=== PATIENT | female | born 1995 | race Caucasian/White ===

== ENCOUNTER 2019-09-11 01:08 | Emergency (ER) | payer OTHER ==
--- NOTE | 2019-09-11 01:35 | ED Physician Documentation ---
PD HPI CHEST PAIN - Stated complaint Stated Complaint: CHEST PAIN - Chief complaint Chief Complaint: Cardiac - History obtained from History obtained from: Patient - History of Present Illness Timing - onset: Last night (She states she was at a concert last night in [place]. She states it was somewhat smoky in the building. She was sitting down herself though a lot of people were up and around dancing. She denies any direct injury or trauma. She was not smoking and is not a smoker. She had had a little bit of cough and congestion the last several days but no fevers and no significant cough. She states she had onset of pain in the anterior chest which is worse with deep breathing and somewhat with movement. It does not hurt with eating or swallowing. She felt may be somewhat short of breath or tightness in the chest. She denies any prior similar episodes.) Timing - onset during: Light activity Timing - details: Abrupt onset, Still present, Waxing and waning Quality: Aching, Sharp, Pain Location: Substernal, Left chest Radiation: No: Jaw, Neck, Back Improved by: Rest Worsened by: Inspiration, Movement, Palpation Associated symptoms: Shortness of air, Other (drove from [place] to [place] a few weeks ago; had felt okay at that time.). No: Nausea, Feeling faint / dizzy, General Weakness, Palpitations Similar symptoms before: Has not had sx before Recently seen: Not recently seen Review of Systems Constitutional: denies: Fever, Chills Nose: denies: Rhinorrhea / runny nose, Congestion Throat: denies: Sore throat Cardiac: reports: Chest pain / pressure (just since last night). denies: Palpitations, Pedal edema, Calf pain Respiratory: reports: Dyspnea, Cough. denies: Hemoptysis, Wheezing Musculoskeletal: denies: Extremity swelling Neurologic: denies: Near syncope, Syncope PD PAST MEDICAL HISTORY - Past Medical History Past Medical History: No Respiratory: None Endocrine/Autoimmune: None - Past Surgical History /CUSTOM SEAMSTRESS: Breast reduction - Present Medications Home Medications: Ambulatory Orders Medication Instructions Recorded Confirmed Acetaminophen [Tylenol] 650 mg PO Q6H PRN #50 tablet 09/11/19 Ibuprofen [Motrin] 600 mg PO TID PRN #20 tab 09/11/19 - Allergies Allergies/Adverse Reactions: Allergies Allergy/AdvReac Type Severity Reaction Status Date / Time No Known Drug Allergies Allergy Verified 09/11/19 02:08 - Living Situation Living Arrangement: reports: At home - Social History Does the pt smoke?: No Smoking Status: Never smoker Does the pt have substance abuse?: No - Immunizations Immunizations are current?: Yes - POLST Patient has POLST: No PD ED PE NORMAL - Vitals Vital signs reviewed: Yes - General General: Alert and oriented X 3, No acute distress, Well developed/nourished - HEENT HEENT: Moist mucous membranes, Pharynx benign - Neck Neck: Supple, no meningeal sign, No adenopathy - Cardiac Cardiac: RRR, No murmur, No rub - Respiratory Respiratory: Clear bilaterally, Other (There is reproducible chest wall tenderness in the left parasternal border without any rash crepitance or deformity. This is the area of her pain.) - Abdomen Abdomen: Soft, Non tender - Derm Derm: Normal color, Warm and dry - Extremities Extremities: No tenderness to palpate, Normal ROM s pain, No edema, No calf tenderness / cord - Neuro Neuro: Alert and oriented X 3, No motor deficit, Normal speech Results - Vitals Vitals: Vital Signs - 24 hr 09/11/19 09/11/19 09/11/19 01:10 01:27 02:18 Temperature 36.8 C Heart Rate 116 H 93 98 Respiratory 16 12 18 Rate Blood Pressure 141/95 H 137/86 H O2 Saturation 100 100 09/11/19 02:48 Temperature Heart Rate 104 H Respiratory 22 Rate Blood Pressure 126/84 H O2 Saturation 100 Oxygen O2 Source Room air - EKG (time done) 01:16 Rate: Rate (enter#) (96) Rhythm: NSR [place]: Normal Intervals: Normal HI QRS: Normal Ischemia: Normal ST segments. No: ST elevation c/w ischemia, ST depression - Rads (name of study) chest xray Radiology: Prelim report reviewed (normal), EMP read contemporaneously, See rad report PD MEDICAL DECISION MAKING - ED course Complexity details: reviewed results, considered differential (She drove from [place] a few weeks ago but has clinically low probability with palpable tenderness on the chest wall and no dyspnea per se. She is negative by PERC rules. The clinical diagnosis would be costochondral tenderness. EKG and chest x-ray are normal. I did not see a reason for further testing.), d/w patient Departure - Departure Disposition: Home, Self Care Clinical Impression: Chest wall pain Condition: Stable Record reviewed to determine appropriate education?: Yes Instructions: ED Chest Pain Costochondritis Follow-Up: MARY Lee [Provider Group] Prescriptions: Acetaminophen [Tylenol] 650 mg PO Q6H PRN #50 tablet PRN Reason: PRN PAIN &/OR FEVER Ibuprofen [Motrin] 600 mg PO TID PRN #20 tab PRN Reason: Pain Comments: No signs of more significant cause of your pain based on your vital signs, EKG, chest x-ray and exam. I presume this is some inflammation or irritation of the muscles and cartilage of the chest. Use anti-inflammatory such as ibuprofen 600 mg 3 times a day with food for the next 5 to 7 days. Add Tylenol every 4 hours if needed for pain. Recheck if not improved well over the next several days.
[2019-09-11] MEDS ORDERED: ALBUTEROL NEB 2.5 MG/3 ML INH STA (01:59)
[2019-09-11] MEDS ORDERED: IBUPROFEN 600 MG TABLET PO STA (01:59)
[2019-09-11] MEDS ORDERED: CHERRY SYRUP 10 ML UDC PO ONE (02:00)
[2019-09-11] MEDS ORDERED: DEXAMETHASONE 10 MG/ML VIAL PO STA (02:00)
[2019-09-11] MEDS ORDERED: ACETAMINOPHEN 325 MG TABLET PO STA (02:00)
--- NOTE | 2019-09-11 02:46 | XRAY Report ---
Reason: dyspnea/ chest pain Procedure Date: 09/11/2019 Accession Number: [id number] / [id number] Procedure: XR - Chest 2 View X-Ray CPT Code: 95743 Final Report FULL RESULT: EXAM: CHEST RADIOGRAPHY EXAM DATE: 09/11/2019 02:37 AM. CLINICAL HISTORY: Dyspnea/ chest pain. COMPARISON: None. TECHNIQUE: 2 views. FINDINGS: Lungs/Pleura: No focal opacities evident. No pleural effusion. No pneumothorax. Normal volumes. Mediastinum: Heart and mediastinal contours are unremarkable. Other: None. IMPRESSION: Normal 2-view chest radiography. [facility]
[2019-09-11 02:49] VITALS: BP 126/84
[2019-09-11] MEDS ORDERED: HYDROcod/ACET 5/325 Prepack 4 PO STA (03:04)
== END 2019-09-11 03:20 | disposition home or self-care (01) ==
LOC: ED 01:08
DX: R07.89 Other chest pain (principal)
CPT/HCPCS: 71046; 93005; 94640; 99284; A9270